=== PATIENT | female | born 1950 | race Two or more races ===

== ENCOUNTER 2022-03-13 09:56 | Emergency (ER) | payer MEDICARE, OTHER ==
[~2022-03-13] VITALS: Ht 142.2 cm; Wt 69.0 kg
[2022-03-13 11:03] VITALS: BP 156/71
[2022-03-13] MEDS ORDERED: FLUORESCEIN SOD OPTH TEST STRIP OP ONE (11:15)
[2022-03-13] MEDS ORDERED: CIP03OS RIGHTEYE (11:27)
[2022-03-13] MEDS ORDERED: NEOMYCIN-BACITRACIN-POLYM 15GM TOP OINT TOP SCH (22:00)
== END 2022-03-13 11:40 | disposition home or self-care (01) ==
LOC: ER 09:56
DX: S05.02XA Injury of conjunctiva and corneal abrasion without foreign body, left eye, initial encounter (principal); W18.49XA Other slipping, tripping and stumbling without falling, initial encounter; Y93.89 Activity, other specified; Y92.89 Other specified places as the place of occurrence of the external cause; Y99.8 Other external cause status; Z88.5 Allergy status to narcotic agent